=== PATIENT | female | born 1975 | race Caucasian/White ===

== ENCOUNTER 2016-07-19 17:57 | Emergency (ER) | payer OTHER ==
[2016-07-19 19:13] LABS: BASOPHIL 1.7 % (0-2); EOSINOPHIL 3.4 % (0-5); HCT 42.7 % (37.0-47.0); HGB 14.8 g/dl (12.5-16.0); MCH 33.8 pg (25.0-31.0); MCHC 34.7 g/dL (32.0-36.0); MCV 97.5 fL (78.0-100.0); MONOCYTE 8.7 % (0-12); MPV 9.9 fL (6.0-9.5); NEUTROPHIL 49.2 % (41-80); PLT 373 K/uL (150-400); RBC 4.38 M/uL (4.20-5.40); RDW 14.1 % (11.5-14.0); WBC 8.3 K/uL (4.0-10.5)
[2016-07-19 19:25] LABS: POTASSIUM 3.7 mmol/L (3.5-5.1)
== END 2016-07-19 20:51 | disposition home or self-care (01) ==
LOC: FER 17:57
PROVIDERS: Nurse Practitioner Family
DX: S39.012A Strain of muscle, fascia and tendon of lower back, initial encounter (principal); R05 Cough; F17.210 Nicotine dependence, cigarettes, uncomplicated
CPT/HCPCS: 36415; 71020; 72072; 72110; 80048; 85025; 94640; J1100; J1885

== ENCOUNTER 2016-07-23 21:32 | Emergency (ER) | payer OTHER ==
[2016-07-24 01:57] LABS: BILIRUBIN NEGATIVE (NEGATIVE); BLOOD NEGATIVE Ery/uL (NEGATIVE); CLARITY CLEAR (CLEAR); COLOR YELLOW (YELLOW); GLUCOSE (U) NORMAL (NORMAL); KETONE (U) NEGATIVE (NEGATIVE); LEUKOCYTES NEGATIVE Leu/uL (NEGATIVE); NITRITE NEGATIVE (NEGATIVE); PROTEIN NEGATIVE (NEGATIVE); SPECIFIC GRAVITY 1.015 (1.001-1.030); UROBILINOGEN 0.2 mg/dL (0.2-1.0)
[2016-07-24 02:05] LABS: BASOPHIL 0.4 % (0-2); HCT 44.8 % (37.0-47.0); HGB 15.3 g/dl (12.5-16.0); LYMPHOCYTE 17.4 % (15-48); MCH 33.3 pg (25.0-31.0); MCHC 34.2 g/dL (32.0-36.0); MCV 97.6 fL (78.0-100.0); MONOCYTE 8.7 % (0-12); MPV 9.9 fL (6.0-9.5); NEUTROPHIL 72.5 % (41-80); PLT 357 K/uL (150-400); RBC 4.59 M/uL (4.20-5.40); RDW 13.8 % (11.5-14.0); WBC 10.8 K/uL (4.0-10.5)
[2016-07-24 02:23] LABS: ALBUMIN 3.7 g/dL (3.5-5.0); BILIRUBIN - TOTAL 0.5 mg/dL (0.1-1.0); CREATININE 0.7 mg/dL (0.5-1.0); GLOBULIN (CALCULATION) 2.6 g/dL (2.2-4.2); POTASSIUM 3.4 mmol/L (3.5-5.1); TOTAL PROTEIN 6.3 g/dL (6.4-8.3)
== END 2016-07-24 02:50 | disposition home or self-care (01) ==
LOC: FER 21:32
PROVIDERS: Emergency Medicine
DX: R10.9 Unspecified abdominal pain (principal); R11.0 Nausea; F17.200 Nicotine dependence, unspecified, uncomplicated
CPT/HCPCS: 36415; 80053; 81003; 82150; 83690; 85025

== ENCOUNTER 2016-08-13 21:39 | Emergency (ER) | payer OTHER | END 2016-08-14 01:10 | disposition home or self-care (01) | LOC: FER 21:39 | DX: S22.32XA Fracture of one rib, left side, initial encounter for closed fracture (principal); M54.5 Low back pain; F17.210 Nicotine dependence, cigarettes, uncomplicated; W19.XXXA Unspecified fall, initial encounter | CPT/HCPCS: 71101; 94010; 94664; J1885 ==